=== PATIENT | male | born 1995 | race African-American/Black ===

== ENCOUNTER 2018-06-18 13:09 | Emergency (ER) | payer MEDICAID ==
[~2018-06-18] VITALS: Ht 177.8 cm; Wt 83.3 kg
[2018-06-18 13:44] VITALS: BP 109/66
== END 2018-06-18 14:21 | disposition home or self-care (01) ==
LOC: ER 13:09
DX: S51.811D Laceration without foreign body of right forearm, subsequent encounter (principal); F17.200 Nicotine dependence, unspecified, uncomplicated; F12.10 Cannabis abuse, uncomplicated; X58.XXXD Exposure to other specified factors, subsequent encounter; Z98.890 Other specified postprocedural states
CPT/HCPCS: 99281